=== PATIENT | male | born 1960 | race African-American/Black ===

== ENCOUNTER 2018-08-05 11:58 | Day surgery (SDC) | payer OTHER ==
[2018-08-05] MEDS ORDERED: MIDAZOLAM 1 MG/ML 2 ML INJ (15:42)
[2018-08-05] MEDS ORDERED: ROPIVACAINE 0.5 % 30 ML VIAL (15:45)
[2018-08-05] MEDS ORDERED: ONDANSETRON 4 MG INJ (15:58)
[2018-08-05] MEDS ORDERED: CEFAZOLIN 1 GM INJ (15:58)
[2018-08-05] MEDS ORDERED: PROPOFOL 20 ML (16:05)
[2018-08-05] MEDS ORDERED: ROCURONIUM 50 MG INJ ×2 (16:05→16:06)
[2018-08-05] MEDS ORDERED: LIDOCAINE 2% (SDV) 5 ML INJ (16:05)
[2018-08-05] MEDS: BUPIVACAINE 0.25% (MPF) 30 ML INJ (16:14)
[2018-08-05] MEDS ORDERED: FENTAnyl 50 MCG/ML VIAL (16:16)
[2018-08-05] MEDS ORDERED: LABETALOL HCL 20MG INJ (16:20)
[2018-08-05] MEDS ORDERED: hydrALAzine 20 MG INJ (16:34)
[2018-08-05] MEDS ORDERED: SUGAMMADEX SODIUM 200 MG/2 ML VIAL IV (16:50)
[2018-08-05] MEDS ORDERED: IBUPROFEN 600 MG TAB PO (17:00)
[2018-08-05] MEDS ORDERED: HYDROCODONE/APAP (5/325) TAB PO ×2 (17:00)
[2018-08-05] MEDS ORDERED: ONDANSETRON 4 MG INJ IV (17:00)
[2018-08-05] MEDS: morphine 2 MG INJ IV (17:21)
[2018-08-05] MEDS ORDERED: MEPERIDINE 25 MG INJ (17:25)
[2018-08-05] MEDS ORDERED: DIPHENHYDRAMINE 50 MG INJ IV (17:30)
[2018-08-05] MEDS ORDERED: FENTAnyl 50 MCG/ML VIAL IV ×2 (17:30)
[2018-08-05] MEDS: HYDROmorphONE 1 MG/5 ML IV SYRINGE IV ×3 (17:36→18:07)
[2018-08-05] MEDS: ONDANSETRON 4 MG INJ IV (17:36)
[2018-08-05] MEDS: MEPERIDINE 25 MG INJ IV (17:37)
== END 2018-08-05 19:00 | disposition home or self-care (01) ==
LOC: SDS 11:58
DX: K80.10 Calculus of gallbladder with chronic cholecystitis without obstruction (principal)
CPT/HCPCS: 47562; 82962; 88304